=== PATIENT | male | born 1970 | race Caucasian/White ===

== ENCOUNTER 2024-04-28 07:23 | Day surgery (SDC) | payer OTHER ==
--- NOTE | 2024-04-25 15:49 | NUR ---
PHONE CALL TO PT NO ANSWER, LEFT MESSAGE AT [phone]. WILL TRY AGAIN AFTER 16:30 AND AGAIN ON 04-26-24 IN THE MORNING.
[~2024-04-28] VITALS: Ht 172.7 cm; Wt 90.5 kg
[~2024-04-28 07:23] MED LIST: CEFAZOLIN SODIUM 2 GM/20 ML SYR IV SCH; FISH OIL 1,001000 MG PO; IBLOOD GLUCOSE TEST STRIP 1 EA TEST VI PRN; LACTATED RINGER'S 1,000 ML IV SCH; LIDOCAINE HCL 1% 5 ML SDV INJ ONE; TRANEXAMIC ACID 2,000 MG in SODIUM CHLORIDE 0.9% 100 ML IV SCH; VITAMIN D310 MC1 PO
[2024-04-28 07:38] VITALS: BP 149/87
[2024-04-28] MEDS ORDERED: VENTOLIN HFA18 GM INH (07:56)
[2024-04-28] MEDS ORDERED: KETOROLAC TROMETHAMINE 30 MG/ML VIAL ONE ×2 (08:29→08:31)
[2024-04-28] MEDS ORDERED: fentaNYL citrate 100 MCG/2 ML VIAL ONE (08:31)
[2024-04-28] MEDS ORDERED: DEXAMETHASONE SOD PHOS 4 MG/ML VIAL ONE (08:31)
[2024-04-28] MEDS ORDERED: ACETAMINOPHEN 1,000 MG/100 ML VIAL ONE (08:31)
[2024-04-28] MEDS ORDERED: LIDOCAINE HCL 2% 5 ML SDV ONE (08:31)
[2024-04-28] MEDS ORDERED: dexmedeTOMIDine HCl 200 MCG/2 ML VIAL ONE (08:31)
[2024-04-28] MEDS ORDERED: ondansetron HCL 4 MG/2 ML VIAL ONE (08:31)
[2024-04-28] MEDS ORDERED: KETAMINE in NS 50 MG/5 ML SYR ONE (08:31)
[2024-04-28] MEDS ORDERED: propofoL 200 MG/20 ML VIAL ONE (08:31)
[2024-04-28] MEDS ORDERED: HYDROCODONE/ACETA 5/325 TAB PO PRN (08:45)
[2024-04-28] MEDS ORDERED: KETOROLAC TROMETHAMINE 15 MG/ML VIAL IV PRN (08:45)
[2024-04-28] MEDS ORDERED: fentaNYL citrate 50 MCG/ML SDV IV PRN (09:15)
[2024-04-28] MEDS ORDERED: IBLOOD GLUCOSE TEST STRIP 1 EA TEST VI PRN (09:15)
[2024-04-28] MEDS ORDERED: NALOXONE HCL 0.4 MG SYR IV PRN (09:15)
[2024-04-28] MEDS ORDERED: HYDROCODON-ACE1 EA10 PO (09:35)
[2024-04-28] MEDS ORDERED: CELECOXIB200 MG PO (09:35)
--- NOTE | 2024-04-28 09:46 | NUR ---
04/28/24 0946 KIRIT FORREST 0902 PT ARRIVED TO PACU VIA STREACHER, PT HAS NATURAL AIRWAY AND ON ROOM AIR. PT BREATHING EQUAL AND UNLABORED. REPORT TAKEN FROM [facility] ANA[facility]. PT REPORTS NO PAIN AT THIS TIME OR NAUSEA. ICE APPLIED TO SURGICAL SITE, AND ELEVATED WITH PILLOW. 0946 PT SITTING UPRIGHT EATING ICE CHIPS DUE TO SUSHIL MOUTH. PT REPORTING NO PAIN OR NAUSEA AT THIS TIME.
[2024-04-28 09:53] VITALS: BP 105/58
--- NOTE | 2024-04-28 09:55 | NUR ---
PT ARRIVED BACK TO DS AAOX3 ON RA WITH SATS 95% OR GREATER. PT ANSWERS QUESTIONS APPROPRIATELY AND IS ABLE TO MAKE HIS NEEDS KNOWN. IN ROOM UPON PT RETURN. PT NOTED TO BE EATING ICE CHIPS UPON ARRIVAL BACK TO . REPORT RECEIVED FROM SOLOIST DANCER AND SURGICAL SITES VISUALIZED WITH SOLOIST DANCER. DRSG APPEARS CDI AND ICE PACK IN [place] TO R KNEE. RLE ELEVATED AT HIP LEVEL. CMS NOTED TO BE INTACT. VS TAKEN, STABLE. IV SITE ASSESSED, PATENT, AND INFUSING LR PER ORDERS. PT DENIES PAIN OR NAUSEA WHEN ASKED. PT PROVIDED WITH ICE WATER, CRACKERS, AND PUDDING. ALL QUESTIONS ANSWERED. CALL LIGHT WITHIN PT REACH. BED IN LOW POSITION, WHEELS LOCKED, BILAT RAILS IN PLACE FOR SAFETY. LEFT TO GET PT BREAKFAST FROM [employer] AND WILL RETURN.
--- NOTE | 2024-04-28 10:40 | NUR ---
INTO PTS ROOM FOR DISCHARGE TEACHING. PT GIVEN F/U APPT INFO FOR 05/09/24 AT 0945. PT ALSO PROVIDED HANDOUT FROM DR. GARCIA OFFICE ON KNEE ARTHROSCOPY WELL AFTER HOURS PHONE NUMBER. PT EDUCATED ON ICE USE AND PROVIDED SAFETY PRINT OUT REGARDING USE WELL EDCUATED ON NEED TO ENSURE BARRIER IN PLACE BETWEEN SKIN AND ICE PACK TO PREVENT INJURY WITH DIRECT APPLICATION OF ICE PACK TO SKIN. PT VERBALIZED UNDERSTANDING. PT EDUCATED ON DRSG REMOVAL ON 05/01/24 AND TO NOT GET WET UNTIL AFTER F/U APPT WHEN SUTURES ARE REMOVED. PT AGAIN VERBALIZED UNDERSTANDING OF DIRECTIONS. PRESENT FOR DC EDUCATIONS WELL. ALL QUESTIONS ANSWERED, CALL LIGHT WITHIN PT REACH. BED IN LOW POSITION, WHEELS LOCKED.
[2024-04-28 11:00] VITALS: BP 108/69
--- NOTE | 2024-04-28 11:09 | OR ---
[facility] [address], [place] [address] Signed DATE OF OPERATION: 04/28/2024 SURGEON: Naa Rice MD PREOPERATIVE DIAGNOSIS: Medial meniscus tear, right knee. POSTOPERATIVE DIAGNOSIS: Medial meniscus tear, right knee. PROCEDURE PERFORMED: Right knee arthroscopy with partial meniscectomy. SCREENER PERFUMER: None. ANESTHESIA: General. BLOOD LOSS: Minimal. BRIEF HISTORY: Max is a 53-year-old gentleman with pain and instability in his knee. Risks, benefits, and alternatives of surgery were discussed after MRI showed a large posteromedial meniscus tear. He consented to continue. DESCRIPTION OF PROCEDURE: He was taken to the operating room. After adequate anesthesia, he was placed on the operating table. The left leg was flexed, abducted and externally rotated on a well-padded leg arias. The right was placed in well-padded leg arias and prepped and draped in the standard sterile fashion. Portal sites were injected with 0.25% Marcaine with epinephrine. Standard inferolateral and superolateral portals were made and the scope was introduced into the knee. ARTHROSCOPIC FINDINGS: The knee had a moderate synovitis throughout. There were osteophytes on the lateral side of the knee throughout the gutter. 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 Medial and lateral compartment showed no significant chondromalacia. The medial meniscus had a Electronically Signed By: NAA RICE MD 04/28/24 1109 PATIENT NAME: MAX THOMASON OPERATIVE REPORT DATE OF : 70 REPORT #: [id number] PHYSICIAN: NAA RICE MD PCP: NO PRIMARY CARE PHYSICIAN REPORT IS CONFIDENTIAL AND NOT TO BE RELEASED WITHOUT AUTHORIZATION [address] [address] Signed longitudinal tear posteriorly was about a cm long. The lateral meniscus was intact. ACL was noted to be unstable and ineffectual. PCL was intact. DESCRIPTION OF OPERATION: Standard inferomedial portal was made after localization using a spinal needle. The straight biters were used to trim the meniscus back to a stable rim. This was then smoothed using the shaver and all debris was evacuated. The meniscus was feathered out anteriorly. The scope was then withdrawn. Portals were closed with 3-0 nylon and the knee was dressed with Adaptic, ABD, and Davy wrap. He tolerated the procedure well. All sponge, needle, and instrument counts were correct. Naa Rice MD BA/CHELLYL /[id number] Copies: ~ Electronically Signed By: NAA RICE MD 04/28/24 1109 PATIENT NAME: MAX THOMASON OPERATIVE REPORT DATE OF : 70 REPORT #: [id number] PHYSICIAN: NAA RICE MD PCP: NO PRIMARY CARE PHYSICIAN REPORT IS CONFIDENTIAL AND NOT TO BE RELEASED WITHOUT AUTHORIZATION
--- NOTE | 2024-04-28 11:40 | NUR ---
PT DISCHARGED FROM DS VIA WC TO PASSENGER SIDE OF WIFES VEHICLE. PT LEFT WITH ALL PERSONAL BELONGINGS.
--- NOTE | 2024-04-28 11:45 | NUR ---
1100-INTO PTS ROOM FOR ROUTINE REASSESSMENT. PT REMAINS AAOX3. AT PT BEDSIDE. PT DENIES ANY PAIN OR NAUSEA WHEN ASKED. DRSG VISUALIZED AND NO ACUTE CHANGES NOTED FROM INITIAL ASSESSMENT. IV SITE ASSESSED. VS TAKEN. PULSE REMAINS BASLEINE FOR PT BETWEEN 47-52. PT IS VERY PHYSICALLY ACTIVE AND REPORTS RESTING HR OF 45-55 BASELINE. CMS INTACT TO RLE. PT COMPLIANT WITH ICE USE AND ELEVATION OF RLE. PT HOB ELEVATED APPROX 90 DEGREES AND EATING MCDONALDS THAT BROUGHT HIM. ALL QUESTIONS ANSWERED. CALL LIGHT WITHIN PT REACH. BED IN LOW POSITION, WHEELS LOCKED. 1125-INTO PTS ROOM TO ASSESS NEED TO VOID. PT FEELS HE MAY BE ABLE. PT ASSISTED TO EOB AND AMBULATED TO RESTROOM WITH RN SBA FOR SAFETY. GAIT APPEARS STEADY AND EVEN. PT ABLE TO VOID 200 ML OF PALE, CLR, YELLOW URINE. PT AMBUALTED BACK TO ROOM WITH SUPERVISION FOR SAFETY. 1130-PT SITTING ON EOB W/CALL LIGHT AND PERSONAL BELONGINGS WITHIN REACH AND AT SIDE TO ASSIST IN DRESSING FOR DC. DRSG VISUALIZED POST AMBULATION AND NO ACUTE CHANGES NOTED. PT REPROTS PAIN TO REMAIN AT 0/10 POST AMBULATION WELL. CONT TO DENY NAUSEA. 1135- LEFT TO PULL VEHICLE AROUND TO FRONT. ICE PACK REFILLED. IV REMOVED AND TIP OBSERVED TO BE INTACT. PRESSURE DRSG APPLIED WITH GAUZE AND COBAN.
[2024-04-28] MEDS ORDERED: SEVOFLURANE 250 ML BTL INH ONE (15:40)
[2024-05-01] MEDS ORDERED: CELECOXIB 200 MG CAP PO SCH (17:00)
== END 2024-04-28 11:40 | disposition home or self-care (01) ==
LOC: DS 07:23
PROVIDERS: ATTEND Specialist
PROC: 0SBC4ZZ Excision of Right Knee Joint, Percutaneous Endoscopic Approach (ICD-10-PCS; principal; 2024-04-28 11:00)
DX: S83.241A Other tear of medial meniscus, current injury, right knee, initial encounter (principal); M65.961 Unspecified synovitis and tenosynovitis, right lower leg; M22.41 Chondromalacia patellae, right knee; X58.XXXA Exposure to other specified factors, initial encounter
CPT/HCPCS: 01400; J0131; J0690; J1100; J1885; J2405; J2704; J3010; J3490; J7121